=== PATIENT | female | born 1965 | race African-American/Black ===

== ENCOUNTER 2016-09-15 07:24 | Emergency (ER) | payer BC ==
[2016-09-15] MEDS ORDERED: ONDANSETRON 4 MG/2 ML VIAL IVPB ONE (07:50)
[2016-09-15] MEDS ORDERED: SODIUM CHLORIDE 1,000 ML IV STA (07:50)
[2016-09-15] MEDS ORDERED: KETOROLAC TROMETHAMINE 30 MG/1 ML VIAL IVPUSH ONE (07:50)
[2016-09-15 07:54] VITALS: BP 151/84; PULSE 71; TEMP 98.3; BMI 28.3
[2016-09-15] MEDS ORDERED: ONDANSETRON 4 MG/2 ML VIAL ONE (08:04)
[2016-09-15] MEDS ORDERED: KETOROLAC TROMETHAMINE 30 MG/1 ML VIAL ONE (08:04)
--- NOTE | 2016-09-15 08:07 | PDOC ---
History of Present Illness - General History Source: Patient Exam Limitations: No Limitations - History of Present Illness Initial Comments: 09/15/16 08:08 The patient is a 51-year-old woman with no past medical history who presents to the emergency department via walk-in for evaluation of loss of consciousness at approximately 04:00 AM this morning. She states that she was up in her usual state of health this morning when she decided to throw her garbage out. She proceeded to enter the elevator, for which she was stuck in for reportedly 2 hours. She activated the elevator alarm and states that the assembler utility buildings was called. She states that due to the alarm noise and a distinctive smell of smoke, she developed a pulsating band-like headache with associated ear ringing, one episode of emesis, lightheadedness and eventually loss consciousness. The superintendent transmission eventually opened the elevator door. She regained consciousness and states that on her way out of the elevator, she might ve injured her left foot, for which she currently complains of a throbbing left ankle with a rated 10/10 in severity, however patient is able to bear weight on it. She is also currently nauseous. She denies any personal and family past medical history of heart disease. She denies experiencing chest pain, palpitations, dizziness, visual changes, neck pain, shortness of breath, cough, prior/post episode. She denies abdominal pain, fever, chills, generalized weakness. She denies any urinary complaints. Allergies: No Known Drug Allergies. Past Surgical History: None reported Social History: Never smoked. No EtOH and recreational drug use. <Shu Garza - Last Filed: 09/15/16 10:03> - General History Source: Patient Exam Limitations: No Limitations <Alexis Leigh - Last Filed: 09/15/16 10:50> - General Chief Complaint: Syncope/Near Syncope Stated Complaint: VOMITING,SYNCOPE Time Seen by Provider: 09/15/16 07:29 Past History <Shu Garza - Last Filed: 09/15/16 10:03> - Past Medical History Thyroid Disease: No - Psycho/Social/Smoking Cessation Hx Anxiety: No Suicidal Ideation: No Smoking History: Never smoked Have you smoked in the past 12 months: No Information on smoking cessation initiated: No Hx Alcohol Use: No Drug/Substance Use Hx: No Substance Use Type: None <Alexis Leigh - Last Filed: 09/15/16 10:50> - Past Medical History Allergies/Adverse Reactions: Allergies Allergy/AdvReac Type Severity Reaction Status Date / Time No Known Allergies Allergy Verified 09/15/16 07:53 Home Medications: Ambulatory Orders NK [No Known Home Medication] 09/15/16 Review of Systems - Review of Systems Able to Perform ROS?: Yes Comments:: 09/15/16 08:08 GENERAL/CONSTITUTIONAL: No fever or chills. No weakness. HEAD, EYES, EARS, NOSE AND THROAT: Yes: Ear ringing. No change in vision. No ear discharge. No sore throat. CARDIOVASCULAR: Yes: Loss of consciousness. No chest pain or shortness of breath. RESPIRATORY: No cough, wheezing, or hemoptysis. GASTROINTESTINAL: Yes: Nausea. Vomiting x1. No diarrhea or constipation. GENITOURINARY: No dysuria, frequeYes: Left ankle painncy, or change in urination. MUSCULOSKELETAL: No neck or back pain. SKIN: No rash NEUROLOGIC: Yes: Headache. Loss of consciousness. Lightheadedness. No vertigo or change in strength/sensation. ENDOCRINE: No increased thirst. No abnormal weight change. HEMATOLOGIC/LYMPHATIC: No anemia, easy bleeding, or history of blood clots. ALLERGIC/IMMUNOLOGIC: No hives or skin allergy. <Shu Garza - Last Filed: 09/15/16 10:03> *Physical Exam - Vital Signs Last Vital Signs Temp Pulse Resp BP Pulse Ox 98.3 F 71 18 151/84 100 09/15/16 07:25 09/15/16 07:25 09/15/16 07:25 09/15/16 07:25 09/15/16 07:25 - Physical Exam Comments: 09/15/16 08:09 GENERAL: Awake, alert, and fully oriented, in no acute distress. Anxious appearing. HEAD: No signs of trauma EYES: PERRLA, EOMI, sclera anicteric, conjunctiva clear ENT: Auricles normal inspection, hearing grossly normal, nares patent, oropharynx clear without exudates. Moist mucosa NECK: Normal ROM, supple, no lymphadenopathy, JVD, or masses LUNGS: Breath sounds equal, clear to auscultation bilaterally. No wheezes, and no crackles HEART: Regular rate and rhythm, normal S1 and S2, no murmurs, rubs or gallops ABDOMEN: Soft, nontender, normoactive bowel sounds. No guarding, no rebound. No masses EXTREMITIES: Left ankle 2+ DP pulse. Sensations intact. No joint instability. Full plantarflexion, dorsiflexion, no tenderness on weight bearing. No edema. No clubbing or cyanosis. No cords, erythema, or tenderness. NEUROLOGICAL: Cranial nerves II through XII grossly intact. Normal speech, normal gait <Shu Garza - Last Filed: 09/15/16 10:03> - Vital Signs Last Vital Signs Temp Pulse Resp BP Pulse Ox 98.3 F 71 18 151/84 100 09/15/16 07:25 09/15/16 07:25 09/15/16 07:25 09/15/16 07:25 09/15/16 07:25 <Alexis Leigh - Last Filed: 09/15/16 10:50> Heart Score/ECG Review #1 ECG reviewed & interpreted by me at: 07:50 09/15/16 08:06 NSR 63 no std/lola, normal axis, normal intervals, QTC 397 msec. no brugada, no HOCM, no WPW. <Alexis Leigh - Last Filed: 09/15/16 10:50> ED Treatment Course - LABORATORY CBC & Chemistry Diagram: 09/15/16 08:20 09/15/16 08:20 - RADIOLOGY Radiograph Interpretation: 09/15/16 10:03 EXAM: RAD/ANKLE-LEFT Interpreted by Dr. Luis Branch IMPRESSION: AP, lateral and oblique views reveal no sign of fracture, subluxation bone destruction. The mortise is intact and there is no sign of swelling, foreign body or soft tissue air. Significant arthritic changes are not seen. EXAM: RAD/CHEST X-RAY PORTABLE Interpreted by Dr. Luis Branch IMPRESSION: There are no prior studies for comparison. There are clear lungs, normal mediastinum and sharp angles. The bones and soft tissues are intact. <Shu Garza - Last Filed: 09/15/16 10:03> - LABORATORY CBC & Chemistry Diagram: 09/15/16 08:20 09/15/16 08:20 <Alexis Leigh - Last Filed: 09/15/16 10:50> Medical Decision Making - Medical Decision Making 09/15/16 08:16 A portion of this note was documented by scribe services under my direction. I have reviewed the details of the note, within reason, and agree with the documentation with the following case summary and management plan written by me. Patient treated in the ED. Nursing notes are reviewed and incorporated into the medical decision-making. Vital signs reviewed. Peripheral IV access obtained by the nurse, laboratory studies are drawn and sent, reviewed and interpreted by myself. Vital Signs Temp Pulse Resp BP Pulse Ox 98.3 F 71 18 151/84 100 09/15/16 07:25 09/15/16 07:25 09/15/16 07:25 09/15/16 07:25 09/15/16 07:25 51-year-old female with no past medical history presents with syncope. The patient was awake at 4:30 in the morning in her usual day feeling well. Patient was out trying to get her garbage when she got stuck in the elevator for approximately 2 hours. Patient was screaming for help pressing alarm button. Stated that the alarm was ringing loudly for a while. Patient had then vomited and felt lightheaded and syncopized. Denies chest pain shortness of breath. Patient continued feel nauseous when she woke up when a bystander had alerted the super and the elevator was open. Patient was also been complaining about some left ankle discomfort but denies injury. She has no calf pain or history DVTs. Patient is reporting feeling unwell and came to the ED. She also notes that there was some smoke around the elevator as well. This may potentially be vasovagal syncope in the setting of being trapped in the elevator. However, the small, we'll need to entertain carbon monoxide poisoning. We'll obtain labs, give IV fluids, draw blood work obtained chest x- ray and ABG. 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 09/15/16 10:30 Carboxy level: 1.3 Methemoglobin level: 0.4 (Results obtained via paper) 09/15/16 10:44 CBC, BMP 09/15/16 08:20 09/15/16 08:20 CMP Sodium 140 mmol/L (136-145) 09/15/16 08:20 Potassium 3.8 mmol/L (3.5-5.1) 09/15/16 08:20 Chloride 106 mmol/L (98-107) 09/15/16 08:20 Carbon Dioxide 27 mmol/L (21-32) 09/15/16 08:20 Anion Gap 7 (8-16) L 09/15/16 08:20 BUN 9 mg/dL (7-18) 09/15/16 08:20 Creatinine 0.7 mg/dL (0.55-1.02) 09/15/16 08:20 Creat Clearance w eGFR > 60 (>60) 09/15/16 08:20 Random Glucose 87 mg/dL (74-106) 09/15/16 08:20 Calcium 9.3 mg/dL (8.5-10.1) 09/15/16 08:20 Total Bilirubin 0.4 mg/dL (0.2-1.0) 09/15/16 08:20 AST 20 U/L (15-37) 09/15/16 08:20 ALT 22 U/L (12-78) 09/15/16 08:20 Alkaline Phosphatase 80 U/L (45-117) 09/15/16 08:20 Creatine Kinase 136 IU/L (26-192) 09/15/16 08:20 Troponin I < 0.02 ng/ml (0.00-0.05) 09/15/16 08:20 Total Protein 7.8 g/dl (6.4-8.2) 09/15/16 08:20 Albumin 4.0 g/dl (3.4-5.0) 09/15/16 08:20 Ankle and chest xray reviewed. No acute findings. I suspect that this is likely vasovagal syncope. Workup done shows no acute findings. Charly wrap applied for left ankle. She may have potentially sprained it when she fainted. However, patient is able to ambulate without difficulty. Patient be discharged home with her aunt who is a nurse practitioner. I discussed the physical exam findings, ancillary test results and final diagnoses with the patient. I answered all of the patient's questions. The patient was satisfied with the care received and felt comfortable with the discharge plan and treatment plan. The patient will call their primary care physician within 24 hours to arrange follow-up and will return to the Emergency Department with any new, persistant or worsening symptoms. <Alexis Leigh - Last Filed: 09/15/16 10:50> *DC/Admit/Observation/Transfer - Attestations Scribe Attestion: 09/15/16 08:09 Documentation prepared by Shu Garza, acting as medical van driver for Alexis Leigh MD. <Shu Garza - Last Filed: 09/15/16 10:03> - Discharge Dispostion Admit: No <Alexis Leigh - Last Filed: 09/15/16 10:50> Diagnosis at time of Disposition: Syncope Qualifiers: Syncope type: vasovagal syncope Qualified Code(s): R55 - Syncope and collapse - Discharge Dispostion Disposition: HOME Condition at time of disposition: Stable - Patient Instructions Printed Discharge Instructions: DI for Syncope in Adults (Fainting), DI for Ankle Sprain Additional Instructions: Please drink plenty of fluids and rest. Follow up with your doctor. - Post Discharge Activity Work/School Note: Back to Work
[2016-09-15 09:01] LABS: ARTERIAL BLD GAS O2 SATURATION 99.2 % (90-98.9); ARTERIAL BLOOD GAS BASE EXCESS -0.2 meq/l (-2-2); ARTERIAL BLOOD GAS HCO3 24.2 meq/L (22-26); ARTERIAL BLOOD GAS pH 7.39 (7.35-7.45)
[2016-09-15 09:02] LABS: ALLENS TEST POSITIVE; ART PUNCT SITE RIGHT RADIAL; LPM/O2% 2L NASAL O2; PT. ON O2? YES
[2016-09-15 09:07] LABS: BASOPHIL 0.9 % (0-2.0); EOSINOPHIL 1.4 % (0-4.5); MCHC 33.2 g/dl (32.0-36.0); MEAN CELL VOLUME 87.3 fl (80-96); NEUTROPHILS 56.5 % (42.8-82.8); PLATELET COUNT 233 K/MM3 (134-434); RDW 12.7 % (11.6-15.6); WHITE BLOOD COUNT 5.4 K/mm3 (4.0-10.0)
[2016-09-15 09:13] LABS: ANION GAP 7 (8-16); BILIRUBIN,TOTAL 0.4 mg/dL (0.2-1.0); CALCIUM 9.3 mg/dL (8.5-10.1); CO2 27 mmol/L (21-32); COCKROFT - GAULT 107.7035; CREATININE 0.7 mg/dL (0.55-1.02); GLUCOSE,RANDOM 87 mg/dL (74-106); SGOT/AST 20 U/L (15-37); SGPT/ALT 22 U/L (12-78); TOT PROT 7.8 g/dl (6.4-8.2)
[2016-09-15 09:14] LABS: ALK PHOS 80 U/L (45-117); TROPONIN I < 0.02 ng/ml (0.00-0.05)
--- NOTE | 2016-09-15 15:29 | EKG ---
Test Reason : Blood Pressure : / mmHG Vent. Rate : 063 BPM Atrial Rate : 063 BPM P-R Int : 136 ms QRS Dur : 076 ms QT Int : 388 ms P-R-T Axes : 079 057 049 degrees QTc Int : 397 ms NORMAL SINUS RHYTHM NORMAL ECG NO PREVIOUS ECGS AVAILABLE Confirmed by ABIOLA KAMINSKI, ALPHONSE ([id number]) on 09/15/2016 3:29:13 PM Referred By: Confirmed By:ALPHONSE CULVER MD
== END 2016-09-15 11:07 | disposition home or self-care (01) ==
LOC: JER 07:24
PROC: 3E0333Z Introduction of Anti-inflammatory into Peripheral Vein, Percutaneous Approach (ICD-10-PCS; principal; 2016-09-15)
PROC: 3E033GC Introduction of Other Therapeutic Substance into Peripheral Vein, Percutaneous Approach (ICD-10-PCS; 2016-09-15)
PROC: 3E0337Z Introduction of Electrolytic and Water Balance Substance into Peripheral Vein, Percutaneous Approach (ICD-10-PCS; 2016-09-15)
DX: R55 Syncope and collapse (principal)
CPT/HCPCS: 36415; 36600; 71010-TC; 73610-TC-LT; 80053; 82550; 82803; 84484; 85025; 93005; 93010; 99283-25

== ENCOUNTER 2023-05-13 09:02 | Emergency (ER) | payer OTHER, BC ==
[2023-05-13 09:10] VITALS: BP 166/84; PULSE 82; RESP 16; TEMP 98; BMI 23.3
[2023-05-13] MEDS ORDERED: LIDOCAINE 4% PATCH TP ONE (09:39)
[2023-05-13] MEDS ORDERED: ACETAMINOPHEN 325 MG TABLET (FP) ONE (09:39)
[2023-05-13] MEDS ORDERED: KETOROLAC TROMETHAMINE 30 MG/1 ML VIAL ONE (09:39)
[2023-05-13] MEDS: KETOROLAC TROMETHAMINE 30 MG/1 ML VIAL IM ONE (09:49)
[2023-05-13] MEDS: ACETAMINOPHEN 325 MG TABLET (FP) PO ONE (09:55)
[2023-05-13] MEDS: LIDOCAINE 5% TOPICAL PATCH TP ONE (09:55)
[2023-05-13] MEDS ORDERED: LIDOCAINE PATCH REMOVAL MC SCH (22:00)
== END 2023-05-13 11:26 | disposition home or self-care (01) ==
LOC: JERFT 09:02
PROC: 3E0233Z Introduction of Anti-inflammatory into Muscle, Percutaneous Approach (ICD-10-PCS; principal; 2023-05-13)
DX: M54.50 Low back pain, unspecified (principal); V69.00XA Driver of heavy transport vehicle injured in collision with unspecified motor vehicles in nontraffic accident, initial encounter; Y93.I9 Activity, other involving external motion; Y92.818 Other transport vehicle as the place of occurrence of the external cause
CPT/HCPCS: 99284-25